=== PATIENT | female | born 1965 | race Caucasian/White ===

== ENCOUNTER 2017-11-11 06:31 | Day surgery (SDC) | payer BC, MEDICAID ==
[2017-11-11] MEDS ORDERED: Propofol 200 MG/20 ML SDV ONE (06:57)
[2017-11-11] MEDS ORDERED: fentaNYL 100 MCG/2 ML SDV ONE (06:57)
[2017-11-11] MEDS ORDERED: Midazolam 1 MG/ML 2 ML SDV ONE (06:57)
[2017-11-11] MEDS ORDERED: Lactated Ringers 1,000 ML IV SCH (07:00)
[2017-11-11] MEDS ORDERED: Pantoprazole 40 MG Vial IVPUSH ONE (08:32)
[2017-11-11] MEDS ORDERED: Ondansetron 4 MG/2 ML SDV IVPUSH ONE (08:33)
--- NOTE | 2017-11-11 09:46 | OR ---
DATE OF PROCEDURE: 11/11/2017 PROCEDURE: Colonoscopy. FINDINGS: Normal colonoscopy. PREOPERATIVE DIAGNOSIS: Screening colonoscopy. POSTOPERATIVE DIAGNOSIS: Screening colonoscopy. RISKS: Risks, benefits, alternatives, and limitations including, but not limited to infection, bleeding, and perforation were explained to the patient and she wished to proceed. PROCEDURE IN DETAIL: The patient was placed in left lateral decubitus position. Digital rectal exam was performed which showed a mild external hemorrhoid. The scope was introduced and advanced atraumatically to the ileocecal valve. The scope was brought back to the ascending, transverse, descending, and retroflexed. External hemorrhoid tag was again noted. No other abnormalities noted. No old or new blood. No inflammation. No polyps. No masses. No diverticulosis. The patient tolerated the procedure well. Dominic Hunter MD /[id number]
== END 2017-11-11 09:48 | disposition home or self-care (01) ==
LOC: JP.SDS 06:31
PROVIDERS: ATTEND Surgery
DX: Z12.11 Encounter for screening for malignant neoplasm of colon (principal); K64.4 Residual hemorrhoidal skin tags; E78.5 Hyperlipidemia, unspecified; Z88.8 Allergy status to other drugs, medicaments and biological substances; Z88.6 Allergy status to analgesic agent
CPT/HCPCS: J2250; J2405; J2704; J3010; J7120